=== PATIENT | female | born 1970 | race Caucasian/White ===

== ENCOUNTER → 2023-06-05 17:31 | Outpatient (REF) | payer OTHER, SELFPAY | LOC: RAD 17:31 | PROVIDERS: ATTENDING PHYSICIAN Nurse Practitioner | DX: S16.1XXA Strain of muscle, fascia and tendon at neck level, initial encounter (principal) | CPT/HCPCS: 72050 ==

== ENCOUNTER → 2023-11-14 11:56 | Outpatient (REF) | payer OTHER, SELFPAY | LOC: WDC 11:56 | PROVIDERS: ATTENDING PHYSICIAN Nurse Practitioner | DX: Z12.31 Encounter for screening mammogram for malignant neoplasm of breast (principal) | CPT/HCPCS: 77063; 77067 ==

== ENCOUNTER → 2024-11-16 12:10 | Outpatient (REF) | payer OTHER, SELFPAY | LOC: WDC 12:10 | PROVIDERS: ATTENDING PHYSICIAN Student in an Organized Health Care Education/Training Program; FAMILY PHYSICIAN Nurse Practitioner | DX: Z12.31 Encounter for screening mammogram for malignant neoplasm of breast (principal) | CPT/HCPCS: 77063; 77067 ==

== ENCOUNTER → 2024-12-18 06:32 | Outpatient (REF) | payer OTHER, SELFPAY | LOC: DHSLP 06:32 | PROVIDERS: ATTENDING PHYSICIAN Nurse Practitioner | DX: G47.30 Sleep apnea, unspecified (principal); R06.83 Snoring | CPT/HCPCS: 95800 ==